=== PATIENT | female | born 1960 | race Caucasian/White ===

== ENCOUNTER 2017-06-15 09:02 | Day surgery (SDC) | payer BC ==
[~2017-06-15 09:02] MED LIST: Buffered Lidocaine 0.9% SYRIN* 5 ML/SYR SYRINGE INTRADERM ONE
[2017-06-15] MEDS ORDERED: Buffered Lidocaine 0.9% SYRIN* 5 ML/SYR SYRINGE ONE (09:04)
[2017-06-15] MEDS ORDERED: Bupivacaine 0.25% SDV* 30 ML ONE (10:25)
[2017-06-15] MEDS ORDERED: Naloxone* 0.4 MG/ML 1 ML VIAL IV PRN (10:32)
[2017-06-15] MEDS ORDERED: Midazolam* 1 MG/ML 2 ML VIAL (2 MG) ONE (10:57)
[2017-06-15] MEDS ORDERED: fentaNYL* 50 MCG/ML 2 ML VIAL (100 MCG VIAL) ONE (10:57)
[2017-06-15] MEDS ORDERED: Propofol* 10 MG/ML 20 ML BTL IV PUSH ONE (11:05)
[2017-06-15] MEDS ORDERED: Lidocaine 2% PF * 5 ML VIAL ONE (11:06)
[2017-06-15 12:11] VITALS: BP 122/72
--- NOTE | 2017-06-20 04:55 | OP ---
DATE OF OPERATION: 06/15/17 - SDS DATE OF : 58 SURGEON: Kris Mckeon MD RIVET PASSER: DIANA oMnte ANESTHESIOLOGIST: Dr. Sorenson. ANESTHESIA: Local MAC. PRE-OP DIAGNOSIS: Left carpal tunnel syndrome. POST-OP DIAGNOSIS: Left carpal tunnel syndrome. OPERATIVE PROCEDURE: Left open carpal tunnel release. INDICATIONS: Lizz has had progressive left carpal tunnel syndrome. We talked about risks and benefits. She wanted to proceed. ESTIMATED BLOOD LOSS: 2 mL. COMPLICATIONS: None. FINDINGS: As expected. DESCRIPTION OF PROCEDURE: Lizz was seen in the preoperative holding area. The correct side, site and the procedure were identified. We came back to the operating room and the arm was prepped and draped in usual fashion. A time-out was performed. I made a 2 to 3 cm incision in standard location for an open carpal tunnel release. Dissection was carried down through the subcutaneous tissue and palmar fascia. The transverse carpal ligament was released just off the radial aspect of hook of the hamate. The release was completed distally and proximally. The fascia and the subcutaneous tissue were released and retracted volarly and ulnarly with a Mary retractor. The remainder of the transverse carpal ligament and the distal end of brachial fascia was released with the tenotomy scissors under direct visualization. The release was complete, so I irrigated out the wound. The skin was closed with 4-0 nylon suture. Wound was dressed with Xeroform, 4 x 4, sterile Webril, and an Kieran bandage. She was then woken up and taken to recovery room in stable condition. [id number]/[facility] #: [id number] [facility]
== END 2017-06-15 12:35 | disposition home or self-care (01) ==
LOC: OR 09:02
PROVIDERS: ATTEND Orthopaedic Surgery Hand Surgery
DX: G56.02 Carpal tunnel syndrome, left upper limb (principal); Z87.891 Personal history of nicotine dependence; M19.90 Unspecified osteoarthritis, unspecified site; F41.9 Anxiety disorder, unspecified
CPT/HCPCS: J2250; J2704; J3010

== ENCOUNTER 2017-10-03 08:41 | Emergency (ER) | payer BC ==
[2017-10-03 09:13] VITALS: BP 110/65
--- NOTE | 2017-10-03 09:39 | RAD ---
HISTORY: lat mal tender s/p inversion COMPARISONS: None VIEWS: 6, Frontal, lateral, and oblique views of the left foot and ankle FINDINGS: BONE DENSITY: Normal. BONES: There is no acute displaced fracture. There is a well-corticated bone fragment off the medial malleolus suggestive of remote avulsion injury. There are calcaneal enthesophytes. JOINTS: There is mild osteoarthritis of the first MTP joint with subchondral cyst formation. ALIGNMENT: There is no dislocation. SOFT TISSUES: Unremarkable. OTHER FINDINGS: None. IMPRESSION: 1. EVIDENCE OF REMOTE AVULSION INJURY OF THE MEDIAL MALLEOLUS. 2. MILD OSTEOARTHRITIS. 3. NO ACUTE OSSEOUS INJURY. IF SYMPTOMS PERSIST, RECOMMEND REPEAT IMAGING
--- NOTE | 2017-10-03 10:29 | UC ---
Janay Ho Elizabeth, scribed for Jesica Rosario DO on 10/03/17 at 1013 . Lower Extremity/Ankle HPI - HPI Summary HPI Summary: This patient is a 57 year old F presenting to [facility] with a chief complaint of left foot pain since 17:00 yesterday. The patient reports that she rolled her ankle yesterday at 17:00 after stepping on a rock and notes that the pain is at the top and arch of left foot. The patient rates the pain 7/10 in severity. Symptoms aggravated by bearing weight. Symptoms alleviated by nothing. Patient reports difficulty ambulating. Patient denies fevers, shortness of breath, rash , cough, and chest pain. The patient takes Ambien every night to sleep. - History of Current Complaint Chief Complaint: UCLowerExtremity Stated Complaint: FOOT INJURY Time Seen by Provider: 10/03/17 08:58 Hx Obtained From: Patient Onset/Duration: Sudden Onset, Lasting Hours, Still Present Severity Initially: Mild Severity Currently: Moderate Pain Intensity: 7 Pain Scale Used: 0-10 Numeric Aggravating Factor(s): Standing, Ambulation Alleviating Factor(s): Nothing - Allergies/Home Medications Allergies/Adverse Reactions: Allergies Allergy/AdvReac Type Severity Reaction Status Date / Time nitrofurantoin Allergy Vomiting Verified 10/03/17 09:05 [From Macrobid] penicillin G Allergy Hives Verified 10/03/17 09:05 sulfa Allergy Hives Uncoded 10/03/17 09:05 Home Medications: Home Medications Ibuprofen TAB* [Motrin TAB* 400 MG] 400 mg PO ONCE 10/03/17 [History Confirmed 10/03/17] PMH/Surg Hx/FS Hx/Imm Hx Previously Healthy: No - Surgical History Surgical History: Yes Surgery Procedure, Year, and Place: 2013 right ankle [facility]. [place] [facility] [place] - carpal tunnel L hand - Family History Known Family History: Positive: Other - anxiety, arthritis, alcoholism Family History: anxiety, arthritis, alcoholism - Social History Alcohol Use: None Substance Use Type: None Smoking Status (MU): Former Smoker Type: Cigarettes Amount Used/How Often: FEW CIGS/DAY 10 YRS, Have You Smoked in the Last Year: No When Did the Patient Quit Smoking/Using Tobacco: Review of Systems Constitutional: Negative - NEGATIVE FEVER Skin: Negative - NEGATIVE RASH Respiratory: Negative - NEGATIVE COUGH, NEGATIVE SHORTNESS OF BREATH Cardiovascular: Negative - NEGATIVE CHEST PAIN Musculoskeletal: Other: - Left foot pain All Other Systems Reviewed And Are Negative: Yes Physical Exam - Summary Physical Exam Summary: Appearance: Well-Appearing, No Pain Distress, Well-Nourished Eyes: conjunctiva clear, no discharge ENT: Hearing grossly normal, no muffled/hoarse voice. Neck: Normal, Supple Respiratory/Lung Sounds: Lungs clear, Normal breath sounds, No respiratory distress, No accessory muscle use Cardiovascular: RRR, No murmur Musculoskeletal: on inspection, the left ankle and foot is normal, no bruising or swelling. Tenderness over anterior aspect of malleolus as well as metatarsals 3,4, and 5. That includes base of the 5th metatarsal. Neurological: Alert, muscle tone normal Psychiatric: Normal, age appropriate behavior Skin: Normal, Warm, Dry, Normal color Triage Information Reviewed: Yes Vital Signs: Initial Vital Signs Temp 99.1 F 10/03/17 09:07 Pulse 73 10/03/17 09:07 Resp 18 10/03/17 09:07 BP 110/65 10/03/17 09:07 Pulse Ox 100 10/03/17 09:07 Vital Signs Reviewed: Yes Diagnostics - Radiology LEFT FOOT Xray Interpretation: No Acute Changes - IMPRESSION: 1. EVIDENCE OF REMOTE AVULSION INJURY OF THE MEDIAL MALLEOLUS. 2. MILD OSTEOARTHRITIS. 3. NO ACUTE OSSEOUS INJURY. IF SYMPTOMS PERSIST, RECOMMEND REPEAT IMAGING. Dr. Rosario has reviewed this report. Radiology Interpretation Completed By: Radiologist LEFT ANKLE Xray Interpretation: No Acute Changes - IMPRESSION: 1. EVIDENCE OF REMOTE AVULSION INJURY OF THE MEDIAL MALLEOLUS. 2. MILD OSTEOARTHRITIS. 3. NO ACUTE OSSEOUS INJURY. IF SYMPTOMS PERSIST, RECOMMEND REPEAT IMAGING. Dr. Rosario has reviewed this report. Radiology Interpretation Completed By: Radiologist Lower Extremity Course/Dx - Course Course Of Treatment: This patient is a 57 year old F presenting to [facility] with a chief complaint of left foot pain since 17:00 yesterday. Symptoms aggravated by bearing weight. XR results reviewed with patient. In the [facility] course the patient was given a boot and crutches. Patient will be discharged with prescription for Vicodin and follow up from orthopedist. The patient is agreeable with this plan. Medications reviewed. Allergies reviewed. - Differential Dx/Diagnosis Provider Diagnoses: ankle sprain, foot sprain, rule-out foot fracture Discharge - Sign-Out/Discharge Documenting (check all that apply): Discharge/Admit/Transfer - Discharge Plan Condition: Stable Disposition: HOME Discharge Disposition Comment: discharge home Prescriptions: HYDROcodone/ACETAMIN 5-325 MG* [[place] 5-325 TAB*] 1 tab PO Q6H PRN #14 tab MDD 4 TABS PRN Reason: Pain Patient Education Materials: Ankle Sprain (ED), Crutch Instructions (ED), Foot Sprain (ED), Suspected Fracture (ED) Referrals: Armaan De Leon MD [Primary Care Provider] - If Needed Additional Instructions: ORAL NARCOTIC MEDICATION: You have been given a prescription for pain control. This medication is a narcotic. It's best taken with food, as nausea can result if taken on an empty stomach. Don't operate machinery or drive within six hours of taking this medication. Do not combine this medicine with alcohol, or with any medication which can cause sedation (such as cold tablets or sleeping pills) unless you get permission from the physician. Narcotics tend to cause constipation. If possible, drink plenty of fluids and eat a diet high in fiber and fruits. Your history and exam is suspicous for possible occult fracture of the base of the 5th metatarsal. This is a fracture that can have a bad outcome if not properly immobilized. So, we will treat this as a fracture until proven otherwise. That means that you must wear the WALKING BOOT 24 hours a day until the ortho provider tells you otherwise. You should also remain NON-WEIGHT BEARING until told otherwise by the orthopedist, so walking and standing should be done with the help of crutches. It will take 5-7 days to establish whether or not your bone is fractured. The documentation as recorded by the Janay singer Elizabeth accurately reflects the service I personally performed and the decisions made by , Jesica Rosario DO.
== END 2017-10-03 10:33 | disposition home or self-care (01) ==
LOC: UCEAST 08:41
DX: S93.402A Sprain of unspecified ligament of left ankle, initial encounter (principal); S93.602A Unspecified sprain of left foot, initial encounter; X50.1XXA Overexertion from prolonged static or awkward postures, initial encounter; Y93.89 Activity, other specified; Y92.9 Unspecified place or not applicable; M19.072 Primary osteoarthritis, left ankle and foot; Z88.0 Allergy status to penicillin; Z88.2 Allergy status to sulfonamides; Z87.891 Personal history of nicotine dependence; Z81.1 Family history of alcohol abuse and dependence; Z81.8 Family history of other mental and behavioral disorders; Z82.61 Family history of arthritis
CPT/HCPCS: 99213; G0463